=== PATIENT | female | born 1945 | race Caucasian/White ===

== ENCOUNTER 2017-07-14 11:00 | Inpatient (IN) | payer BC, OTHER ==
[2017-07-18 14:59] VITALS: BMI 36.8
[2017-07-21] MEDS ORDERED: oxyCODONE HCL 10 MG SUSTAINED ACTING TABLET PO ONE (07:02)
[2017-07-21] MEDS ORDERED: THROMBIN (BOVINE) 5,000 UNIT VIAL TP ONE ×3 (07:05→10:51)
[2017-07-21] MEDS ORDERED: LIDOCAINE 1%/EPI 1:100000 (20 ML MULTI DOSE VIAL) ONE (07:05)
--- NOTE | 2017-07-21 07:22 | HP ---
History & Physical Update - History History: No Change - Physical Physical: No Change - Assessment Assessment: No Change - Plan Plan: No Change (complete H&P in chart from 07/15/2017 Dr. Tam)
[2017-07-21] MEDS ORDERED: MIDAZOLAM HCL 2 MG/2 ML SINGLE DOSE VIAL ONE ×2 (07:44→10:13)
[2017-07-21] MEDS ORDERED: GUM MASTIC/STORAX/MSAL/ALCOHOL 1 DRP DROPSBTL MC ONE (07:55)
[2017-07-21] MEDS ORDERED: ePHEDrine SULFATE 50 MG/1 ML AMPULE ONE (09:10)
[2017-07-21] MEDS ORDERED: ceFAZolin SODIUM 1 GM VIAL ONE (09:20)
[2017-07-21] MEDS ORDERED: GLYCOPYRROLATE 0.2 MG/1 ML VIAL ONE (09:37)
[2017-07-21] MEDS ORDERED: ACETAMINOPHEN 1000 MG/100 ML VIAL (NON FORMULARY) IVPB PRN (11:19)
[2017-07-21] MEDS ORDERED: ONDANSETRON 4 MG/2 ML VIAL IVPUSH PRN ×2 (11:19→11:22)
--- NOTE | 2017-07-21 11:19 | OP ---
Operative Note - Note: Operative Date: 07/21/17 Pre-Operative Diagnosis: L4-L5 spondylolisthesis Operation: posterior transforaminal L4-5 fusion with interbody instrumentation, decompression, fusion with allograft and neuromonitoring Surgeon: Miguel Jeffries Railroad Watchman: Leni West Anesthesiologist/COVERER: Isaac Moore Anesthesia: Spinal Estimated Blood Loss (mls): 50 Fluid Volume Replaced (mls): 1,700 Operative Report Dictated: Yes
[2017-07-21] MEDS ORDERED: DOCUSATE SODIUM 100 MG CAPSULE (FP) PO PRN (11:27)
[2017-07-21] MEDS ORDERED: LACTATED RINGERS SOLUTION 1,000 ML IV SCH ×2 (11:30)
--- NOTE | 2017-07-21 11:37 | SURG ---
Surgery Industrial Renderer Note Industrial Renderer: Leni West PA-C Date of Service: 07/21/17 Diagnosis: L4-L5 spondylolisthesis Procedure: posterior transforaminal L4-5 fusion with interbody instrumentation, decompression, fusion with allograft and neuromonitoring I was present for the entirety of the operative procedure. For further detail, please refer to operative report. Visit type - Case Type Case Type: Scheduled - Emergency Emergency Visit: No - New patient This patient is new to me today: Yes Date on this admission: 07/21/17
[2017-07-21] MEDS: oxyCODONE HCL 5 MG TABLET PO PRN ×3 (12:50→18:34)
[2017-07-21] MEDS: diazePAM 5 MG TABLET PO SCH (12:51)
[2017-07-21] MEDS: CEFAZOLIN 1 GM/D5W 1 GM/50 ML BAG IVPB SCH (15:19)
[2017-07-21] MEDS: LOSARTAN POTASSIUM 50 MG TABLET (FP) PO SCH (22:07)
[2017-07-21] MEDS: TRIAMTERENE AND HCTZ - 37.5 MG/25 MG CAPSULE PO SCH (22:07)
[2017-07-21] MEDS: ATORVASTATIN CA 10 MG TABLET (FP) PO SCH (22:13)
[2017-07-21] MEDS: SERTRALINE HCL 50 MG TABLET (FP) PO SCH (22:13)
[2017-07-22] MEDS: CEFAZOLIN 1 GM/D5W 1 GM/50 ML BAG IVPB SCH (00:11)
[2017-07-22] MEDS: diazePAM 5 MG TABLET PO SCH ×2 (00:16→14:37)
[2017-07-22] MEDS: oxyCODONE HCL 5 MG TABLET PO PRN (05:40)
[2017-07-22] MEDS: LEVOTHYROXINE NA 125 MCG TABLET (FP) PO SCH (06:25)
[2017-07-22] MEDS: ACETAMINOPHEN 325 MG TABLET (FP) PO PRN (07:03)
[2017-07-22 08:09] LABS: HEMATOCRIT 40.9 % (32.4-45.2); HEMOGLOBIN 14.1 GM/dl (10.7-15.3); MCH 30.8 pg (25.7-33.7); MCHC 34.5 g/dl (32.0-36.0); MEAN CELL VOLUME 89.4 fl (80-96); MEAN PLT VOLUME 8.3 fl (7.5-11.1); PLATELET COUNT 256 K/MM3 (134-434); RBC 4.57 M/mm3 (3.60-5.2); RDW 12.5 % (11.6-15.6); WHITE BLOOD COUNT 12.3 K/mm3 (4.0-10.8)
[2017-07-22 08:31] LABS: ANION GAP 8 (8-16); BLOOD UREA NITROGEN 22 mg/dl (7-18); CALCIUM 8.7 mg/dl (8.4-10.2); CHLORIDE 102 mmol/L (98-107); CO2 22 mmol/L (22-28); CREATININE 1.2 mg/dl (0.6-1.3); GLUCOSE,RANDOM 142 mg/dl (74-106); POTASSIUM 3.5 mmol/L (3.5-5.1); SODIUM 132 mmol/L (136-145)
--- NOTE | 2017-07-22 08:56 | PN ---
Progress Note (short form) - Note Progress Note: Anesthesia postop note, POD#1 S/P posterior transforaminal L4-5 fusion with interbody instrumentation, decompression, fusion with allograft under spinal. Pat seen and examined. Sitting in the chair. C/o muscle spasm, no pain. Tolerating po. ambulating. VSS. No apparent post anesthesia complications.Signed off.
--- NOTE | 2017-07-22 11:34 | PN ---
Progress Note (short form) - Note Progress Note: POD#1 Pt seen this am. No CP/SOB. She is feeling weak today with nausea and she just vomited earlier. OOB and ambulated short distance yesterday. No headache. Having back spasm. Vital Signs Period Temp Pulse Resp BP Sys/Chavez Pulse Ox Last 24 Hr 97.9 F-100.1 F 70-82 16-18 89-113/46-74 93-97 GEN: A&0x3 ABD: soft, non-distended, non-tender LE: 5/5 dorsi/plantar flexion, EHL 5/5 b/l. Back: dressing c/d/i. CBC, BMP 07/22/17 08:00 07/22/17 08:00 A/p: 72 yo female s/p L4-5 fusion IV zofran this am and give regular diet Pain medication as needed Ambulate with PT DVT ppx with SCDs Pt to stay for observation and continued care. Pain management, will decrease her valium to 2mg. She is somewhat lethargic. She informed the nursing staff that she quit smoking several days, smoking 10 cigarettes per day. Will order nicotine patch. Continuous pulse ox ordered, she desaturated when not on NC oxygen therapy to low 90's. D/w Dr. Jeffries Home service set up for the am if pt stable for discharge. Home PT/vns/ rolling walker. <Leni West - Last Filed: 07/22/17 16:24> - Note Progress Note: Patient seen and exam agree with above Patient with continued pain and weakness Will keep patient in hospital for continued observation <Miguel Jeffries - Last Filed: 07/26/17 11:22>
[2017-07-22] MEDS: NICOTINE 14 MG/24 HOURS TOPICAL PATCH TD SCH (17:00)
[2017-07-22] MEDS ORDERED: diazePAM 2 MG TABLET PO PRN (18:10)
[2017-07-22] MEDS ORDERED: KETOROLAC TROMETHAMINE 15 MG/ML VIAL IVPUSH PRN (18:11)
[2017-07-22] MEDS ORDERED: ACETAMINOPHEN 1000 MG/100 ML VIAL (NON FORMULARY) IVPB ONE (18:12)
[2017-07-22] MEDS ORDERED: SODIUM CHLORIDE 0.45% 1,000 ML IV SCH (18:15)
[2017-07-22] MEDS: traMADol HCL 50 MG TABLET PO SCH (18:37)
[2017-07-22] MEDS ORDERED: PT OWN MED DRAWER 7, Y5N ONE (21:04)
[2017-07-22] MEDS: ATORVASTATIN CA 10 MG TABLET (FP) PO SCH (21:35)
[2017-07-22] MEDS: SERTRALINE HCL 50 MG TABLET (FP) PO SCH (21:35)
[2017-07-22] MEDS: TRIAMTERENE AND HCTZ - 37.5 MG/25 MG CAPSULE PO SCH (21:39)
[2017-07-22] MEDS: LOSARTAN POTASSIUM 50 MG TABLET (FP) PO SCH (21:39)
[2017-07-22] MEDS ORDERED: diazePAM 2 MG TABLET PO SCH (22:00)
[2017-07-23] MEDS: traMADol HCL 50 MG TABLET PO SCH ×4 (00:04→18:31)
[2017-07-23] MEDS: ACETAMINOPHEN 325 MG TABLET (FP) PO PRN (03:58)
[2017-07-23] MEDS: LEVOTHYROXINE NA 125 MCG TABLET (FP) PO SCH (06:40)
[2017-07-23 08:44] LABS: ANION GAP 7 (8-16); BLOOD UREA NITROGEN 24 mg/dl (7-18); CHLORIDE 101 mmol/L (98-107); CO2 25 mmol/L (22-28); GLUCOSE,RANDOM 89 mg/dl (74-106); POTASSIUM 3.7 mmol/L (3.5-5.1); SODIUM 133 mmol/L (136-145)
[2017-07-23 08:48] LABS: BASO % 0.6 % (0-2.0); EOS % 0.9 % (0-4.5); HEMATOCRIT 38.8 % (32.4-45.2); HEMOGLOBIN 13.3 GM/dl (10.7-15.3); LYMPH % 9.1 % (8-40); MCH 30.6 pg (25.7-33.7); MCHC 34.4 g/dl (32.0-36.0); MEAN CELL VOLUME 88.9 fl (80-96); MEAN PLT VOLUME 8.5 fl (7.5-11.1); MONO % 6.1 % (3.8-10.2); NEUT % 83.3 % (42.8-82.8); PLATELET COUNT 220 K/MM3 (134-434); RBC 4.36 M/mm3 (3.60-5.2); RDW 12.5 % (11.6-15.6); WHITE BLOOD COUNT 13.1 K/mm3 (4.0-10.8)
--- NOTE | 2017-07-23 09:47 | PN ---
Progress Note (short form) - Note Progress Note: POD#2 Staff having a difficulty with transferring pt, she is unable to take steps and feels weakness. The patient states that prior to and after to her fall she has been having knee pain which she alleviates with motrin. Overall all, she has been able to complete daily activites, she drives herself to work 3 times per week. Her family and herself do state that she requires assistance with getting up and does hold onto objects in the room with ambulating. She doesn't use a cane or walker. The patient was seen by a neurologist six months ago for a tremor. Her tremor is worse in the am and with grabbing for objects. No medications were recommended. Today, she denies any SOB, CP, her headache this am resolved with tyelnol. Vital Signs Period Temp Pulse Resp BP Sys/Chavez Pulse Ox Last 24 Hr 98 F-99.0 F 75-101 18-19 103-134/41-47 90-95 GEN: A&0x3, NAD Neuro: A&0 x3, lethargy improved. CV: RRR Lungs: CTA b/l anteriorly ABD: soft, non-distended, non-tender Back: dressing c/d/i, changed today. Inc with steri-strips, no evidence of hematoma, ecchymosis or eryhtema. Reapplied new 4x4 gauze and tegaderm LE: 5/5 dorsi/plantar/EHL b/l. +2 DP pulses b/l. 3/5 Quad b/l. UE: 5/5 flexion/extension b/l. Precision Farming Coordinator strength equal b/l. CBC, BMP 06/09/18 07:15 06/09/18 07:15 A/P: 72 yo female. POD#2 s/p lumbar fusion of L4-5 PT more alert today and able to ambulate with physical therapy Valium discontinued and will continue ultram, toradol and tylenol prn. She is more alert off of valium, although it was helping with her back spasm immediately post-op. Those symtpoms have improved. Discontinue IV fluids, pt eating and drinking adequately Will obtain a medical consult for management of medical issues and weakness. Her electrolyes are WNL. D/w Dr. Jeffries and he agrees with the patients care plan. <Leni West - Last Filed: 07/23/17 10:16> - Note Progress Note: Will discontinue valium and see if her weakness improved Cont PT <Miguel Jeffries - Last Filed: 07/26/17 11:23>
[2017-07-23] MEDS: NICOTINE 14 MG/24 HOURS TOPICAL PATCH TD SCH (10:00)
--- NOTE | 2017-07-23 14:40 | CONSULT ---
Consultation: REQUESTING PROVIDER: GERARDO [place] CONSULT REQUEST: We have been asked to medically evaluate this patient for lower extremity weakness HISTORY OF PRESENT ILLNESS: REVIEW OF SYSTEMS: CONSTITUTIONAL: Absent: fever, chills, diaphoresis, generalized weakness, malaise, loss of appetite, weight change HEENT: Absent: rhinorrhea, nasal congestion, throat pain, throat swelling, difficulty swallowing, mouth swelling, ear pain, eye pain, visual changes CARDIOVASCULAR: Absent: chest pain, syncope, palpitations, irregular heart rate, lightheadedness , peripheral edema RESPIRATORY: Absent: cough, shortness of breath, dyspnea with exertion, orthopnea, wheezing, stridor, hemoptysis GASTROINTESTINAL: Absent: abdominal pain, abdominal distension, nausea, vomiting, diarrhea, constipation, melena, hematochezia GENITOURINARY: Absent: dysuria, frequency, urgency, hesitancy, hematuria, flank pain, genital pain MUSCULOSKELETAL: Absent: myalgia, arthralgia, joint swelling, back pain, neck pain SKIN: Absent: rash, itching, pallor HEMATOLOGIC/IMMUNOLOGIC: Absent: easy bleeding, easy bruising, lymphadenopathy, frequent infections ENDOCRINE: Absent: unexplained weight gain, unexplained weight loss, heat intolerance, cold intolerance NEUROLOGIC: Absent: headache, focal weakness or paresthesias, dizziness, unsteady gait, seizure, mental status changes, bladder or bowel incontinence PSYCHIATRIC: Absent: anxiety, depression, suicidal or homicidal ideation, hallucinations. PHYSICAL EXAMINATION Vital Signs - 24 hr 07/22/17 07/22/17 07/22/17 19:54 20:26 22:00 Temperature 98 F 98.2 F Pulse Rate 78 91 H Respiratory 18 18 19 Rate Blood Pressure 134/44 125/47 O2 Sat by Pulse 95 94 L Oximetry (%) 07/23/17 07/23/17 07/23/17 06:00 07:08 08:50 Temperature 98.3 F Pulse Rate 101 H Respiratory 19 Rate Blood Pressure 117/43 O2 Sat by Pulse 90 L 95 Oximetry (%) GENERAL: Awake, alert, and fully oriented, in no acute distress. HEAD: Normal with no signs of trauma. EYES: Pupils equal, round and reactive to light, extraocular movements intact, sclera anicteric, conjunctiva clear. No lid lag. EARS, NOSE, THROAT: Ears normal, nares patent, oropharynx clear without exudates. Moist mucous membranes. NECK: Normal range of motion, supple without lymphadenopathy, JVD, or masses. LUNGS: Breath sounds equal, clear to auscultation bilaterally. No wheezes, and no crackles. No accessory muscle use. HEART: Regular rate and rhythm, normal S1 and S2 without murmur, rub or gallop. ABDOMEN: Soft, nontender, not distended, normoactive bowel sounds, no guarding, no rebound, no masses. No hepatomegaly or splenomegaly. MUSCULOSKELETAL: Normal range of motion at all joints. No bony deformities or tenderness. No CVA tenderness. UPPER EXTREMITIES: 2+ pulses, warm, well-perfused. No cyanosis. No clubbing. Cap refill <2 seconds. No peripheral edema. LOWER EXTREMITIES: 2+ pulses, warm, well-perfused. No calf tenderness. No peripheral edema. NEUROLOGICAL: Cranial nerves II-XII intact. Normal speech. Normal gait. PSYCHIATRIC: Cooperative. Good eye contact. Appropriate mood and affect. SKIN: Warm, dry, normal turgor, no rashes or lesions noted. Laboratory Results - last 24 hr 07/23/17 07/23/17 07:15 07:15 WBC 13.1 H RBC 4.36 Hgb 13.3 Hct 38.8 MCV 88.9 MCH 30.6 MCHC 34.4 RDW 12.5 Plt Count 220 MPV 8.5 Absolute Neuts (auto) 10.9 Neutrophils % 83.3 H Lymphocytes % 9.1 Monocytes % 6.1 Eosinophils % 0.9 Basophils % 0.6 Sodium 133 L Potassium 3.7 Chloride 101 Carbon Dioxide 25 Anion Gap 7 L BUN 24 H Creatinine 1.0 Random Glucose 89 D Calcium 9.0 Active Medications Generic Name Dose Route Start Last Admin Trade Name Freq PRN Reason Stop Dose Admin Acetaminophen 650 mg 07/21/17 11:19 07/23/17 03:58 Tylenol - PO 650 mg Q6H PRN Administration PAIN LEVEL 1 - 3 Atorvastatin Calcium 10 mg 07/21/17 22:00 07/22/17 21:35 Lipitor - PO 10 mg HS JR Administration Docusate Sodium 100 mg 07/21/17 11:27 Colace - PO BID PRN CONSTIPATION Ketorolac Tromethamine 15 mg 07/22/17 18:11 07/22/17 18:30 Toradol Injection - IVPUSH 15 mg Q8H PRN Administration PAIN LEVEL 1-5 Levothyroxine Sodium 125 mcg 07/22/17 07:00 07/23/17 06:40 Synthroid - PO 125 mcg DAILY@0700 JR Administration Losartan Potassium 100 mg 07/21/17 22:00 07/22/17 21:39 Cozaar - PO 100 mg HS JR Administration Nicotine 14 mg 07/22/17 16:15 07/23/17 10:00 Nicoderm Patch - TD Not Given DAILY JR Ondansetron HCl 4 mg 07/21/17 11:22 07/22/17 12:30 Zofran Injection IVPUSH 4 mg Q6H PRN Administration NAUSEA AND/OR VOMITING Ondansetron HCl 4 mg 07/21/17 11:19 Zofran Injection IVPUSH Q6H PRN NAUSEA AND/OR VOMITING Sertraline HCl 100 mg 07/21/17 22:00 07/22/17 21:35 Zoloft - PO 100 mg HS JR Administration Tramadol HCl 50 mg 07/22/17 18:15 07/23/17 13:01 Ultram - PO 50 mg Q6H JR Administration Triamterene/HCTZ 1 cap 07/21/17 22:00 07/22/17 21:39 Dyazide 25/37.5mg PO 1 cap HS JR Administration ASSESSMENT/PLAN: Dispo: We will continue to follow the patient. Thank you for this consultative opportunity.
[2017-07-23] MEDS: ATORVASTATIN CA 10 MG TABLET (FP) PO SCH (22:02)
[2017-07-23] MEDS: LOSARTAN POTASSIUM 50 MG TABLET (FP) PO SCH (22:02)
[2017-07-23] MEDS: TRIAMTERENE AND HCTZ - 37.5 MG/25 MG CAPSULE PO SCH (22:02)
[2017-07-23] MEDS: SERTRALINE HCL 50 MG TABLET (FP) PO SCH (22:02)
[2017-07-24] MEDS: traMADol HCL 50 MG TABLET PO SCH ×4 (00:10→18:01)
[2017-07-24] MEDS: LEVOTHYROXINE NA 125 MCG TABLET (FP) PO SCH (06:18)
[2017-07-24 08:56] LABS: BASO % 0.3 % (0-2.0); EOS % 3.1 % (0-4.5); HEMATOCRIT 38.7 % (32.4-45.2); HEMOGLOBIN 13.4 GM/dl (10.7-15.3); LYMPH % 13.7 % (8-40); MCH 30.7 pg (25.7-33.7); MCHC 34.5 g/dl (32.0-36.0); MEAN PLT VOLUME 8.7 fl (7.5-11.1); MONO % 6.9 % (3.8-10.2); PLATELET COUNT 248 K/MM3 (134-434); RBC 4.35 M/mm3 (3.60-5.2); RDW 12.3 % (11.6-15.6); WHITE BLOOD COUNT 11.3 K/mm3 (4.0-10.8)
[2017-07-24] MEDS: NICOTINE 14 MG/24 HOURS TOPICAL PATCH TD SCH (09:20)
[2017-07-24 09:24] LABS: ALBUMIN 2.8 g/dl (3.5-5.0); ALK PHOS 42 U/L (32-92); ANION GAP 8 (8-16); BILIRUBIN,TOTAL 0.7 mg/dl (0.2-1.0); BLOOD UREA NITROGEN 27 mg/dl (7-18); CALCIUM 8.9 mg/dl (8.4-10.2); CHLORIDE 100 mmol/L (98-107); CO2 25 mmol/L (22-28); CREATININE 1.2 mg/dl (0.6-1.3); GLUCOSE,RANDOM 70 mg/dl (74-106); SGOT/AST 45 U/L (10-42); SGPT/ALT 12 U/L (10-40); SODIUM 133 mmol/L (136-145); TOT PROT 5.5 g/dl (6.4-8.3)
[2017-07-24] MEDS ORDERED: SODIUM CHLORIDE 500 ML IV STA (14:18)
--- NOTE | 2017-07-24 15:13 | PN ---
Progress Note (short form) - Note Progress Note: Subjective: The patient was seen and examined at the bedside, she refused to ambulate or use her incentive spirometer for me. She reports she is not ambulating because she is "fearful" and "nervous". She ambulated 60ft with PT Patient also reports that she has increased cough and states "I know I have pneumonia". Chest X-ray with no infiltrates Current Medications Generic Name Dose Route Start Last Admin Trade Name Freq PRN Reason Stop Dose Admin Acetaminophen 650 mg 07/21/17 11:19 07/23/17 03:58 Tylenol - PO 650 mg Q6H PRN Administration PAIN LEVEL 1 - 3 Atorvastatin Calcium 10 mg 07/21/17 22:00 07/23/17 22:02 Lipitor - PO 10 mg HS JR Administration Docusate Sodium 100 mg 07/21/17 11:27 Colace - PO BID PRN CONSTIPATION Sodium Chloride 500 mls @ 500 mls/hr 07/24/17 14:18 07/24/17 14:24 Normal Saline - IV 07/24/17 15:17 500 mls/hr ASDIR STA Administration Ketorolac Tromethamine 15 mg 07/22/17 18:11 07/22/17 18:30 Toradol Injection - IVPUSH 15 mg Q8H PRN Administration PAIN LEVEL 1-5 Levothyroxine Sodium 125 mcg 07/22/17 07:00 07/24/17 06:18 Synthroid - PO 125 mcg DAILY@0700 JR Administration Losartan Potassium 100 mg 07/21/17 22:00 07/23/17 22:02 Cozaar - PO 100 mg HS JR Administration Nicotine 14 mg 07/22/17 16:15 07/24/17 09:20 Nicoderm Patch - TD 14 mg DAILY JR Administration Ondansetron HCl 4 mg 07/21/17 11:22 07/22/17 12:30 Zofran Injection IVPUSH 4 mg Q6H PRN Administration NAUSEA AND/OR VOMITING Ondansetron HCl 4 mg 07/21/17 11:19 Zofran Injection IVPUSH Q6H PRN NAUSEA AND/OR VOMITING Sertraline HCl 100 mg 07/21/17 22:00 07/23/17 22:02 Zoloft - PO 100 mg HS JR Administration Tramadol HCl 50 mg 07/22/17 18:15 07/24/17 12:00 Ultram - PO Not Given Q6H JR Triamterene/HCTZ 1 cap 07/21/17 22:00 07/23/17 22:02 Dyazide 25/37.5mg PO Not Given HS JR Objective: Vital Signs Period Temp Pulse Resp BP Sys/Chavez Pulse Ox Last 24 Hr 98.4 F-98.6 F 18-88 17-20 85-130/44-51 91-95 Physical Exam: General: NAD, A&Ox3 Lungs: CTA bilaterally Heart: RRR, S1S2 Abd: Soft, non-tender, non-distended. Normoactive bowel sounds Ext: Warm, well-perfused. 2+ DP/PT bilaterally Skin: Lower back dressing, c/d/i Neuro: B/l lower extremity with 4/5 muscle strength bilaterally CBCD WBC 11.3 K/mm3 (4.0-10.8) H 07/24/17 06:00 RBC 4.35 M/mm3 (3.60-5.2) 07/24/17 06:00 Hgb 13.4 GM/dl (10.7-15.3) 07/24/17 06:00 Hct 38.7 % (32.4-45.2) 07/24/17 06:00 MCV 89.0 fl (80-96) 07/24/17 06:00 MCHC 34.5 g/dl (32.0-36.0) 07/24/17 06:00 RDW 12.3 % (11.6-15.6) 07/24/17 06:00 Plt Count 248 K/MM3 (134-434) 07/24/17 06:00 MPV 8.7 fl (7.5-11.1) 07/24/17 06:00 CMP Sodium 133 mmol/L (136-145) L 07/24/17 06:00 Potassium 4.0 mmol/L (3.5-5.1) 07/24/17 06:00 Chloride 100 mmol/L (98-107) 07/24/17 06:00 Carbon Dioxide 25 mmol/L (22-28) 07/24/17 06:00 Anion Gap 8 (8-16) 07/24/17 06:00 BUN 27 mg/dl (7-18) H 07/24/17 06:00 Creatinine 1.2 mg/dl (0.6-1.3) 07/24/17 06:00 Creat Clearance w eGFR 44.29 (>60) 07/24/17 06:00 Random Glucose 70 mg/dl (74-106) L D 07/24/17 06:00 Calcium 8.9 mg/dl (8.4-10.2) 07/24/17 06:00 Total Bilirubin 0.7 mg/dl (0.2-1.0) 07/24/17 06:00 AST 45 U/L (10-42) H 07/24/17 06:00 ALT 12 U/L (10-40) 07/24/17 06:00 Alkaline Phosphatase 42 U/L (32-92) 07/24/17 06:00 Total Protein 5.5 g/dl (6.4-8.3) L 07/24/17 06:00 Albumin 2.8 g/dl (3.5-5.0) L 07/24/17 06:00 Assessment: This is a 72 year old female who is POD #3 lumbar fusion of L4-5 Plan: 1) Decreased ambulation s/p surgery - Patient reports mental struggle with ambulating post surgery - Encouraged ambulation, discussed at length with RN the need to get patient up and walking multiple times in the day, not just with PT - Continue daily PT, will benefit from either home PT or SNF 2) +Cough - Patient reports "I know I have pneumonia" - Chest X-ray PA and lateral with no infiltrate, WBC trending down, afebrile - Continue to observe off abx - Atelectasis on x-ray, encouraged incentive spirometer 3) Hypotension - Hold all antihypertensives - NS fluid bolus given - Monitor BP closely Thank you for this consultative opportunity Visit type - Emergency Visit Emergency Visit: Yes ED Registration Date: 07/21/17 Care time: The patient presented to the Emergency Department on the above date and was hospitalized for further evaluation of their emergent condition. - New Patient This patient is new to me today: No - Critical Care Critical Care patient: No
[2017-07-24] MEDS ORDERED: SODIUM CHLORIDE 250 ML IV STA (16:49)
[2017-07-24] MEDS: SODIUM CHLORIDE 1,000 ML IV SCH (18:00)
[2017-07-24] MEDS: LOSARTAN POTASSIUM 50 MG TABLET (FP) PO SCH (21:33)
[2017-07-24] MEDS: SERTRALINE HCL 50 MG TABLET (FP) PO SCH (21:34)
[2017-07-24] MEDS: ATORVASTATIN CA 10 MG TABLET (FP) PO SCH (21:34)
[2017-07-24] MEDS: TRIAMTERENE AND HCTZ - 37.5 MG/25 MG CAPSULE PO SCH (21:34)
[2017-07-25] MEDS: traMADol HCL 50 MG TABLET PO SCH ×5 (00:26→23:45)
[2017-07-25] MEDS: LEVOTHYROXINE NA 125 MCG TABLET (FP) PO SCH (06:11)
--- NOTE | 2017-07-25 08:06 | DS ---
Physical Exam: SUBJECTIVE: POD #4. Patient seen and examined. Patient sitting in chair at bedside this morning. She's oob and ambulating with rolling walker & PT assistance. States she stopped taking the Tramadol and Valium as it makes her "woozy". Adequate pain control with oral Tylenol. C/o RLE pain to lateral aspect. OBJECTIVE: Last Vital Signs Temp Pulse Resp BP Pulse Ox 98.6 F 65 18 99/48 96 07/25/17 06:00 07/25/17 06:00 07/25/17 06:00 07/25/17 06:00 07/25/17 06:00 PE GEN: A&0x3, NAD Head: NC. AT CV: RRR Lungs: CTA b/l anteriorly ABD: obese habitus. soft, non-distended, non-tender Back: dressing c/d/i. Steri-strips. No hematoma. Neuro: GMNVI bilat. LE: 5/5 dorsi/plantar/EHL b/l. +2 DP pulses b/l. 3/5 Quad b/ l. UE: 5/5 flexion/extension b/l. Drum Dyeing Machine Operator strength equal b/ l. LABS CBC,CMP WBC 11.3 K/mm3 (4.0-10.8) H 07/24/17 06:00 RBC 4.35 M/mm3 (3.60-5.2) 07/24/17 06:00 Hgb 13.4 GM/dl (10.7-15.3) 07/24/17 06:00 Hct 38.7 % (32.4-45.2) 07/24/17 06:00 MCV 89.0 fl (80-96) 07/24/17 06:00 MCH 30.7 pg (25.7-33.7) 07/24/17 06:00 MCHC 34.5 g/dl (32.0-36.0) 07/24/17 06:00 RDW 12.3 % (11.6-15.6) 07/24/17 06:00 Plt Count 248 K/MM3 (134-434) 07/24/17 06:00 MPV 8.7 fl (7.5-11.1) 07/24/17 06:00 Absolute Neuts (auto) 8.5 # 07/24/17 06:00 Neutrophils % 76.0 % (42.8-82.8) 07/24/17 06:00 Lymphocytes % 13.7 % (8-40) 07/24/17 06:00 Monocytes % 6.9 % (3.8-10.2) 07/24/17 06:00 Eosinophils % 3.1 % (0-4.5) 07/24/17 06:00 Basophils % 0.3 % (0-2.0) 07/24/17 06:00 Sodium 133 mmol/L (136-145) L 07/24/17 06:00 Potassium 4.0 mmol/L (3.5-5.1) 07/24/17 06:00 Chloride 100 mmol/L (98-107) 07/24/17 06:00 Carbon Dioxide 25 mmol/L (22-28) 07/24/17 06:00 Anion Gap 8 (8-16) 07/24/17 06:00 BUN 27 mg/dl (7-18) H 07/24/17 06:00 Creatinine 1.2 mg/dl (0.6-1.3) 07/24/17 06:00 Creat Clearance w eGFR 44.29 (>60) 07/24/17 06:00 Random Glucose 70 mg/dl (74-106) L D 07/24/17 06:00 Calcium 8.9 mg/dl (8.4-10.2) 07/24/17 06:00 Total Bilirubin 0.7 mg/dl (0.2-1.0) 07/24/17 06:00 AST 45 U/L (10-42) H 07/24/17 06:00 ALT 12 U/L (10-40) 07/24/17 06:00 Alkaline Phosphatase 42 U/L (32-92) 07/24/17 06:00 Total Protein 5.5 g/dl (6.4-8.3) L 07/24/17 06:00 Albumin 2.8 g/dl (3.5-5.0) L 07/24/17 06:00 TSH 6.79 uIU/ml (0.358-3.74) H 07/24/17 06:[address] w/o contrast (wet read): Hardware in good position. No fractures or dislocations. No nerve root impingement HOSPITAL COURSE: Date of Admission:18 Date of Discharge: 07/25/17 The patient was admitted to the Med-Surg Unit after an elective repair of their L4/5 spondy. Now, s/p L4/5 TLIF. The day of surgery, the patient ambulated a little but quickly stopped secondary to severe muscular spasms. POD #1 she ambulated 60' with PT and aid of rolling walker. Pain control via narcotic and non-narcotic oral and IV approach. Muscle spasms resolved after Valium An xray was obtained and confirmed hardware placement at L4/5, no fractures or dislocations. POD #[address] w/o contrast ordered to r/o malpositioned hardware due to c/ o increased RLE pain to lateral aspect. Hardware in good position. No fractures or dislocations. No nerve root impingement Stefanie-operative IV ABX were administered. DVT prophylaxis was achieved with SCDs and early ambulation. The patient ambulated with Physical Therapy and they recommend she go to sub- acute rehab facility for continued care. Narcotic scripts and or muscle relaxants were checked with [place] M[employer] DESIGNER prior to escribe. The discharge instructions and an oral pain management plan were reviewed with the patient. All questions answered. Above plan discussed with Dr. Jeffries and agreed. Minutes to complete discharge: 25 <Emanuel Dinero P - Last Filed: 07/25/17 12:05> Physical Exam: SUBJECTIVE: Patient seen and examined OBJECTIVE: Vital Signs Temperature 97.9 F 07/26/17 06:00 Pulse Rate 63 07/26/17 06:00 Respiratory Rate 18 07/26/17 08:09 Blood Pressure 126/50 07/26/17 06:00 O2 Sat by Pulse Oximetry (%) 99 07/26/17 08:09 PHYSICAL EXAM GENERAL: The patient is awake, alert, and fully oriented, in no acute distress. HEAD: Normal with no signs of trauma. EYES: PERRL, extraocular movements intact, sclera anicteric, conjunctiva clear. ENT: Ears normal, nares patent, oropharynx clear without exudates, moist mucous membranes. NECK: Trachea midline, full range of motion, supple. LUNGS: Breath sounds equal, clear to auscultation bilaterally, no wheezes, no crackles, no accessory muscle use. HEART: Regular rate and rhythm, S1, S2 without murmur, rub or gallop. ABDOMEN: Soft, nontender, nondistended, normoactive bowel sounds, no guarding, no rebound, no hepatosplenomegaly, no masses. EXTREMITIES: 2+ pulses, warm, well-perfused, no edema. NEUROLOGICAL: Cranial nerves II through XII grossly intact. Normal speech, gait not observed. PSYCH: Normal mood, normal affect. SKIN: Warm, dry, normal turgor, no rashes or lesions noted. LABS CBC,CMP WBC 9.2 K/mm3 (4.0-10.8) 07/25/17 07:45 RBC 4.11 M/mm3 (3.60-5.2) 07/25/17 07:45 Hgb 12.7 GM/dl (10.7-15.3) 07/25/17 07:45 Hct 36.7 % (32.4-45.2) 07/25/17 07:45 MCV 89.3 fl (80-96) 07/25/17 07:45 MCH 30.8 pg (25.7-33.7) 07/25/17 07:45 MCHC 34.5 g/dl (32.0-36.0) 07/25/17 07:45 RDW 12.4 % (11.6-15.6) 07/25/17 07:45 Plt Count 275 K/MM3 (134-434) 07/25/17 07:45 MPV 8.2 fl (7.5-11.1) 07/25/17 07:45 Absolute Neuts (auto) 8.5 # 07/24/17 06:00 Neutrophils % 76.0 % (42.8-82.8) 07/24/17 06:00 Lymphocytes % 13.7 % (8-40) 07/24/17 06:00 Monocytes % 6.9 % (3.8-10.2) 07/24/17 06:00 Eosinophils % 3.1 % (0-4.5) 07/24/17 06:00 Basophils % 0.3 % (0-2.0) 07/24/17 06:00 Sodium 134 mmol/L (136-145) L 07/25/17 07:45 Potassium 4.2 mmol/L (3.5-5.1) 07/25/17 07:45 Chloride 103 mmol/L (98-107) 07/25/17 07:45 Carbon Dioxide 24 mmol/L (22-28) 07/25/17 07:45 Anion Gap 7 (8-16) L 07/25/17 07:45 BUN 36 mg/dl (7-18) H D 07/25/17 07:45 Creatinine 1.9 mg/dl (0.6-1.3) H D 07/25/17 07:45 Creat Clearance w eGFR 44.29 (>60) 07/24/17 06:00 Random Glucose 86 mg/dl (74-106) D 07/25/17 07:45 Calcium 8.7 mg/dl (8.4-10.2) 07/25/17 07:45 Total Bilirubin 0.7 mg/dl (0.2-1.0) 07/24/17 06:00 AST 45 U/L (10-42) H 07/24/17 06:00 ALT 12 U/L (10-40) 07/24/17 06:00 Alkaline Phosphatase 42 U/L (32-92) 07/24/17 06:00 Total Protein 5.5 g/dl (6.4-8.3) L 07/24/17 06:00 Albumin 2.8 g/dl (3.5-5.0) L 07/24/17 06:00 TSH 6.79 uIU/ml (0.358-3.74) H 07/24/17 06:00 HOSPITAL COURSE: Date of Admission:07/21/17 Date of Discharge: 07/26/17 The patient was admitted to the Med-Surg Unit after an elective repair of their (problem). Now, s/p ( procedure ). The day of surgery, the patient ambulated the hallways with assistance. Narcotic and non-narcotic pain management control was achieved with an oral and IV approach. POD #1, the surgical drain was removed fully intact and without incident. An xray was obtained and confirmed hardware placement at (level of ), no fractures or dislocations. Stefanie-operative IV ABX were administered. DVT prophylaxis was achieved with SCDs and early ambulation. The patient ambulated with Physical Therapy and no services were recommended upon discharge. Narcotic scripts and or muscle relaxants were checked with [place] [employer] prior to escibe. The discharge instructions and an oral pain management plan were reviewed with the patient. All questions answered. Above plan discussed with Dr. Jeffries and agreed. Patient seen and examined Agree with above D/C to rehab <Miguel Jeffries - Last Filed: 07/26/17 11:23> Visit type - Case Type Case Type: Scheduled - New patient This patient is new to me today: Yes Date on this admission: 07/25/17 <Emanuel Dinero - Last Filed: 07/25/17 12:05>
[2017-07-25 08:43] LABS: HEMATOCRIT 36.7 % (32.4-45.2); HEMOGLOBIN 12.7 GM/dl (10.7-15.3); MCH 30.8 pg (25.7-33.7); MCHC 34.5 g/dl (32.0-36.0); MEAN CELL VOLUME 89.3 fl (80-96); MEAN PLT VOLUME 8.2 fl (7.5-11.1); PLATELET COUNT 275 K/MM3 (134-434); RBC 4.11 M/mm3 (3.60-5.2); RDW 12.4 % (11.6-15.6); WHITE BLOOD COUNT 9.2 K/mm3 (4.0-10.8)
[2017-07-25] MEDS: NICOTINE 14 MG/24 HOURS TOPICAL PATCH TD SCH (09:15)
[2017-07-25 09:35] LABS: ANION GAP 7 (8-16); BLOOD UREA NITROGEN 36 mg/dl (7-18); CALCIUM 8.7 mg/dl (8.4-10.2); CHLORIDE 103 mmol/L (98-107); CO2 24 mmol/L (22-28); CREATININE 1.9 mg/dl (0.6-1.3); GLUCOSE,RANDOM 86 mg/dl (74-106); POTASSIUM 4.2 mmol/L (3.5-5.1); SODIUM 134 mmol/L (136-145)
[2017-07-25] MEDS: ACETAMINOPHEN 325 MG TABLET (FP) PO PRN (17:12)
[2017-07-25] MEDS: SERTRALINE HCL 50 MG TABLET (FP) PO SCH (21:28)
[2017-07-25] MEDS: ATORVASTATIN CA 10 MG TABLET (FP) PO SCH (21:28)
[2017-07-25] MEDS: SODIUM CHLORIDE 1,000 ML IV SCH (22:59)
[2017-07-25] MEDS: LOSARTAN POTASSIUM 50 MG TABLET (FP) PO SCH (23:11)
[2017-07-25] MEDS: TRIAMTERENE AND HCTZ - 37.5 MG/25 MG CAPSULE PO SCH (23:11)
[2017-07-26] MEDS: traMADol HCL 50 MG TABLET PO SCH (05:42)
[2017-07-26] MEDS: LEVOTHYROXINE NA 125 MCG TABLET (FP) PO SCH (06:33)
[2017-07-26 06:44] VITALS: BP 126/50; PULSE 63; TEMP 97.9
[2017-07-26] MEDS: NICOTINE 14 MG/24 HOURS TOPICAL PATCH TD SCH (09:35)
[2017-07-26] MEDS: ACETAMINOPHEN 325 MG TABLET (FP) PO PRN (09:35)
== END 2017-07-26 12:12 | DRG 460 ==
LOC: FM/S 07-21 05:49
PROVIDERS: ADMIT Orthopaedic Surgery Orthopaedic Surgery of the Spine; ATTEND Orthopaedic Surgery Orthopaedic Surgery of the Spine
PROC: 0SG00AJ Fusion of Lumbar Vertebral Joint with Interbody Fusion Device, Posterior Approach, Anterior Column, Open Approach (ICD-10-PCS; principal; 2017-07-21 09:30)
DX: M43.16 Spondylolisthesis, lumbar region (principal); J98.11 Atelectasis; R05 Cough; I95.9 Hypotension, unspecified
CPT/HCPCS: 36415; 71045-TC-FY; 71046-TC-FY; 72100-TC-FY; 72131-TC; 80048; 80053; 84443; 85025; 85027; 94760; 97116-GP; 97162-GP; J0131; J7030